=== PATIENT | male | born 1975 | race Asian ===

== ENCOUNTER 2018-03-22 05:28 | Inpatient (IN) | payer OTHER ==
[2018-03-22] MEDS: ACETAMINOPHEN 1000MG/100ML IV 100 ML IVPB (05:50)
[2018-03-22] MEDS: DEXAMETHASONE 4 MG/ML 1 ML INJ IV (05:50)
[2018-03-22] MEDS: LANSOPRAZOLE 30 MG CAP PO (05:51)
[2018-03-22] MEDS: ONDANSETRON 4 MG INJ IV ×4 (05:51→20:30)
[2018-03-22] MEDS: TRANEXAMIC ACID 1,000 MG in NS 100 ML INTRA-OP X1 IVPB (06:00)
[2018-03-22] MEDS: CEFAZOLIN 1 GM/50 ML (PMX) 50 ML IVPB ×4 (06:00→23:22)
[2018-03-22] MEDS: TRANEXAMIC ACID 1,000 MG in NS 100 ML PRE-OP X1 IVPB (06:00)
[2018-03-22] MEDS: LACTATED RINGER'S 1,000 ML IV* (06:00)
[2018-03-22] MEDS: oxyCODONE (CR) 10 MG TAB [oxyCONTIN] PO (06:00)
[2018-03-22] MEDS ORDERED: POLYMYXIN/BACITRACIN 1L IRRIG (07:22)
[2018-03-22] MEDS ORDERED: DIPHENHYDRAMINE 50 MG INJ IV ×2 (07:30→10:30)
[2018-03-22] MEDS ORDERED: MAGNESIUM HYDROXIDE 30ML CUP PO (07:30)
[2018-03-22] MEDS ORDERED: BETHANECHOL 25 MG TAB PO (07:30)
[2018-03-22] MEDS ORDERED: BISACODYL 10 MG SUPP PR (07:30)
[2018-03-22] MEDS ORDERED: NA PHOSPHATE/BIPHOS 133 ML ENEMA PR (07:30)
[2018-03-22] MEDS ORDERED: NALOXONE (0.4 MG/ML) INJ IV ×2 (07:30→10:30)
[2018-03-22] MEDS ORDERED: SENNA/DOCUSATE NA (8.6MG/50MG) TAB PO (07:30)
[2018-03-22] MEDS ORDERED: oxyCODONE 5 MG TAB PO (07:30)
[2018-03-22] MEDS ORDERED: NACL 0.9% 3 ML SYG IV (07:30)
[2018-03-22] MEDS ORDERED: MIDAZOLAM 1 MG/ML 2 ML INJ (07:35)
[2018-03-22] MEDS ORDERED: morphine SULFATE/PF (10 MG/10 ML) INJ (07:35)
[2018-03-22] MEDS: POLYMYXIN B 500000 UNIT INJ (08:24)
[2018-03-22] MEDS: BACITRACIN 50000 UNITS INJ IRR (08:25)
[2018-03-22] MEDS: GABAPENTIN 100 MG CAP PO ×2 (09:00→20:36)
[2018-03-22] MEDS ORDERED: LIDOCAINE 2% (SDV) 5 ML INJ (10:02)
[2018-03-22] MEDS ORDERED: PROPOFOL 20 ML (10:02)
[2018-03-22] MEDS ORDERED: ONDANSETRON 4 MG INJ (10:02)
[2018-03-22] MEDS ORDERED: CEFAZOLIN 1 GM INJ (10:02)
[2018-03-22] MEDS ORDERED: ROCURONIUM 50 MG INJ (10:02)
[2018-03-22] MEDS ORDERED: FENTAnyl 50 MCG/ML VIAL IV (10:30)
[2018-03-22] MEDS ORDERED: ONDANSETRON 4 MG INJ IV (10:30)
[2018-03-22] MEDS ORDERED: MEPERIDINE 25 MG INJ IV (10:30)
[2018-03-22] MEDS ORDERED: HYDROmorphONE 1 MG/5 ML IV SYRINGE IV ×2 (10:30)
[2018-03-22] MEDS: ASPIRIN (EC) 325 MG TAB PO ×3 (10:49→20:36)
[2018-03-22] MEDS: DOCUSATE SODIUM 100 MG CAP PO ×2 (10:49→11:03)
[2018-03-22] MEDS: SOD CHLORIDE 0.9% 1,000 ML IV ×2 (11:04→20:45)
[2018-03-22] MEDS: oxyCODONE 5 MG TAB PO ×4 (13:36→21:49)
[2018-03-22] MEDS: HIP PAIN COCKTAIL (CEFUROXIME) INJ (14:00)
[2018-03-22] MEDS: KETOROLAC 30 MG INJ IV (20:36)
[2018-03-23] MEDS: ONDANSETRON 4 MG INJ IV (02:30)
[2018-03-23] MEDS: KETOROLAC 30 MG INJ IV ×3 (02:53→18:41)
[2018-03-23] MEDS: oxyCODONE 5 MG TAB PO ×4 (04:28→16:14)
[2018-03-23 05:04] LABS: ADD MAN DIFF? NO
[2018-03-23 05:08] LABS: BASOPHILS % 0.2 % (0.0-2.0); EOSINOPHILS # 0.1 10^3/ul (0.0-0.5); EOSINOPHILS % 0.7 % (0.0-7.0); HEMOGLOBIN 10.1 g/dl (14.0-18.0); LYMPHOCYTES # 1.7 10^3/ul (0.8-2.9); LYMPHOCYTES % 18.8 % (15.0-51.0); MEAN CORPUSCULAR HEMOGLOBIN 31.9 pg (29.0-33.0); MEAN CORPUSCULAR HGB CONC 34.8 g/dl (32.0-37.0); MEAN CORPUSCULAR VOLUME 91.5 fl (82.0-101.0); MONOCYTE # 0.7 10^3/ul (0.3-0.9); MONOCYTES % 8.2 % (0.0-11.0); NEUTROPHIL # 6.3 10^3/ul (1.6-7.5); NEUTROPHILS % 71.6 % (39.0-77.0); PLATELET COUNT 183 10^3/UL (140-415); RED BLOOD COUNT 3.17 10^6/ul (4.70-6.10); RED CELL DISTRIBUTION WIDTH 11.6 % (11.5-14.5)
[2018-03-23 05:08] LABS: WHITE BLOOD COUNT 8.8 10^3/ul (4.8-10.8)
[2018-03-23 05:32] LABS: ANION GAP 6 (8-16); CALCIUM 8.4 mg/dl (8.4-10.2); CARBON DIOXIDE 29 mmol/L (21-31); CHLORIDE 109 mmol/L (97-110); CREATININE 0.85 mg/dl (0.61-1.24); GLUCOSE 136 mg/dl (70-220); POTASSIUM 3.9 mmol/L (3.5-5.1); SODIUM 140 mmol/L (135-144)
[2018-03-23 05:33] LABS: BLOOD UREA NITROGEN 18 mg/dl (7-20)
[2018-03-23] MEDS: PANTOPRAZOLE (EC) 40 MG TAB PO (05:47)
[2018-03-23] MEDS: SOD CHLORIDE 0.9% 1,000 ML IV (08:10)
[2018-03-23] MEDS: ASPIRIN (EC) 325 MG TAB PO (08:26)
[2018-03-23] MEDS: CELECOXIB 200 MG CAP PO (08:27)
[2018-03-23] MEDS: GABAPENTIN 100 MG CAP PO (08:27)
[2018-03-23] MEDS: FERROUS FUMARATE (SR) TAB PO (08:27)
== END 2018-03-23 19:30 | disposition home health service (06) | DRG 470 ==
LOC: REC 05:28 → MS1 11:39
PROC: 0SRB04Z Replacement of Left Hip Joint with Ceramic on Polyethylene Synthetic Substitute, Open Approach (ICD-10-PCS; principal; 2018-03-22 07:30)
PROC: 8E0YXBZ Computer Assisted Procedure of Lower Extremity (ICD-10-PCS; 2018-03-22 07:30)
DX: M16.12 Unilateral primary osteoarthritis, left hip (principal); I95.9 Hypotension, unspecified
CPT/HCPCS: 72170; 73500; 73530; 80048; 85025; 87081; 88304; 88311; 97116; 97161; 97167; 97530; 97535